=== PATIENT | female | born 1970 | race Caucasian/White ===

== ENCOUNTER 2016-06-08 09:02 | Emergency (ER) | payer MEDICAID ==
[~2016-06-08] VITALS: Ht 152.4 cm; Wt 58.0 kg
[~2016-06-08 09:02] MED LIST: ONDA4TAB8 PO; PNV
[2016-06-08 09:05] VITALS: Ht 152.4 cm; Wt 58.0 kg
[2016-06-08] MEDS ORDERED: IBUPROFEN 600 MG TAB PO ONE (09:30)
[2016-06-08 09:53] LABS: ADD UMIC YES; URINE BILIRUBIN (Dip) NEGATIVE (NEGATIVE); URINE BLOOD (Dip) 3+ (NEGATIVE); URINE COLOR LT. YELLOW (YELLOW); URINE GLUCOSE (Dip) NEGATIVE (NEGATIVE); URINE KETONES (Dip) NEGATIVE (NEGATIVE); URINE LEUKOCYTE ESTERASE (Dip) TRACE (NEGATIVE); URINE NITRITE (Dip) NEGATIVE (NEGATIVE); URINE TOTAL PROTEIN (Dip) NEGATIVE (NEGATIVE); URINE UROBILINOGEN (Dip) 0.2 E.U./dL (0.1-1.0)
[2016-06-08 10:11] LABS: URINE RBCS 25-50 /HPF (0)
[2016-06-08 10:14] LABS: ADD SCAN DIFF NO
--- NOTE | 2016-06-08 10:18 | RADRPT ---
PROCEDURE: US Pelvis CLINICAL INDICATION: Vaginal Bleed TECHNIQUE: Multiple sonographic images of the pelvis were obtained utilizing a transabdominal and endovaginal technique. The images were reviewed on a PACS workstation. COMPARISON: None. LMP: 05/17/2016 FINDINGS: The uterus measures 8.7 x 4.3 x 5.7 cm. The endometrial echo complex measures 12 mm in thickness. A sub-centimeter Nabothian cyst is identified. The right ovary measures 2.3 x 1.3 x 1.4 cm. The left ovary measures 1.4 x 1.1 x 1.2 cm. There is no rmal vascular flow in both ovaries. There are no significant ovarian lesions. No significant pelvic free fluid is identified. IMPRESSION: Unremarkable pelvic ultrasound, as above. RPTAT: EE Physician Tamiko Date Time Electronically viewed and signed by Physician Tamiko on 06/08/2016 10:18 /
[2016-06-08 10:21] LABS: BASOPHILS % 0.5 % (0.0-2.0); EOSINOPHILS # 0.2 10^3/ul (0.0-0.5); EOSINOPHILS % 2.3 % (0.0-7.0); HEMATOCRIT 41.7 % (37.0-47.0); HEMOGLOBIN 13.4 g/dl (12.0-16.0); LYMPHOCYTES # 1.8 10^3/ul (0.8-2.9); LYMPHOCYTES % 26.8 % (15.0-51.0); MEAN CORPUSCULAR HGB CONC 32.1 g/dl (32.0-37.0); MEAN CORPUSCULAR VOLUME 96.5 fl (82.0-101.0); MEAN PLATELET VOLUME 10.3 fl (7.4-10.4); MONOCYTE # 0.4 10^3/ul (0.3-0.9); MONOCYTES % 5.8 % (0.0-11.0); NEUTROPHIL # 4.2 10^3/ul (1.6-7.5); NEUTROPHILS % 64.3 % (39.0-77.0); PLATELET COUNT 237 10^3/UL (140-415); RED BLOOD COUNT 4.32 10^6/ul (4.20-5.40); RED CELL DISTRIBUTION WIDTH 12.2 % (11.5-14.5); WHITE BLOOD COUNT 6.5 10^3/ul (4.8-10.8)
[2016-06-08] MEDS ORDERED: PROG100C5 PO (10:32)
--- NOTE | 2016-06-08 10:36 | ERD ---
ER Documentation Chief Complaint Date/Time DATE: 06/08/16 TIME: 10:34 Chief Complaint vag bleed x 25 days with pelvic pain h/o uterine fibroids HPI 45-year-old female presents to the emergency department complaining of vaginal bleeding. Patient states she has been having menometrorrhagia for the last month. Her last normal menstrual period was probably in March although she does not completely recall. She thinks she skipped a period in April and is been having heavy bleeding over the last 25 days or so. She reports suprapubic pelvic pain. She reports no fevers, chills, urinary symptoms. She reports occasionally passing clots. ROS All systems reviewed and are negative except as per history of present illness. Medications Home Meds Active Scripts Progesterone,Micronized* (Progesterone*) 100 Mg Capsule, 100 MG PO HS for 10 Days, #10 CAP Prov:DUARTE ALSTON 06/08/16 Ondansetron Hcl* (Zofran*) 4 Mg Tablet, 4 MG PO Q6H for NAUSEA AND/OR VOMITING, #10 TAB Prov:SVITLANA TRINH NP 06/17/15 Reported Medications [Pnv] No Conflict Check 06/04/10 Allergies Allergies: Coded Allergies: No Known Allergies (Verified Allergy, Mild, 06/04/10) PMhx/Soc History of Surgery: Yes (MASTOIDECTOMY) Anesthesia Reaction: No Hx Neurological Disorder: No Hx Respiratory Disorders: Yes (ASTHMA) Hx Cardiac Disorders: No Hx Psychiatric Problems: No Hx Miscellaneous Medical Probl: Yes (UTERINE FIBROIDS) Hx Alcohol Use: No Hx Substance Use: No Hx Tobacco Use: No Smoking Status: Never smoker FmHx Noncontributory for chief complaint Physical Exam Vitals Vital Signs Date Time Temp Pulse Resp B/P Pulse Ox O2 Delivery O2 Flow Rate FiO2 06/08/16 09:05 98.1 66 18 113/69 100 Physical Exam GENERAL: The patient is well developed and appropriate for usual state of health in no apparent distress HEENT: Pupils equal, round, and reactive to light. EOMI. There is no scleral icterus. NECK: C-spine is soft and supple, there is no meningismus. There is no cervical lymphadenopathy. LUNGS: Clear to auscultation bilaterally. There are no rales, wheezes or rhonchi. HEART: Regular rate and rhythm, no murmurs, clicks, rubs or gallops. ABDOMEN: Soft, non-tender, non-distended. There are bowel sounds in all four quadrants. No rebound or guarding. EXTREMITIES: There is no peripheral cyanosis or edema. No focal swelling or erythema. NEURO: The patient moves all four extremities with 5/5 strength. Cranial nerves II - XII are intact. Normal gait. Alert and oriented SKIN: There is no apparent rash or petechiae. HEME/LYMPHATIC: There is no evidence of excessive bruising or lymphedema. PSYCHIATRIC: The patient does not appear anxious or depressed. Result Diagram: 06/08/16 1007 Results 24 hrs Laboratory Tests Test 06/08/16 09:26 06/08/16 10:07 Urine Color LT. YELLOW Urine Clarity SLIGHTLY CLOUDY Urine pH 6.5 Urine Specific [place] <=1.005 Urine Ketones NEGATIVE Urine Nitrite NEGATIVE Urine Bilirubin NEGATIVE Urine Urobilinogen 0.2 E.U./dL Urine Leukocyte Esterase TRACE Urine Microscopic RBC 25-50/HPF Urine Microscopic WBC 2-5/HPF Urine Hemoglobin 3+ Urine Glucose NEGATIVE% Urine Total Protein NEGATIVE White Blood Count 6.510^3/ul Red Blood Count 4.3210^6/ul Hemoglobin 13.4g/dl Hematocrit 41.7% Mean Corpuscular Volume 96.5fl Mean Corpuscular Hemoglobin 31.0pg Mean Corpuscular Hemoglobin Concent 32.1g/dl Red Cell Distribution Width 12.2% Platelet Count 21469^3/UL Mean Platelet Volume 10.3fl Neutrophils % 64.3% Lymphocytes % 26.8% Monocytes % 5.8% Eosinophils % 2.3% Basophils % 0.5% Nucleated Red Blood Cells % 0.0/100WBC Neutrophils # 4.210^3/ul Lymphocytes # 1.810^3/ul Monocytes # 0.410^3/ul Eosinophils # 0.210^3/ul Basophils # 0.010^3/ul Nucleated Red Blood Cells # 0.010^3/ul Current Medications Medications (Trade) Dose Ordered Sig/Kanu Route PRN Reason Start Time Stop Time Status Last Admin Dose Admin Ibuprofen (Motrin) 600 mg ONCE ONCE PO 06/08/16 09:30 06/08/16 09:31 DC 06/08/16 09:35 Procedures/MDM Patient was taken to a room, seen and evaluated. Comfort measures were initiated. Diagnostic tests were ordered and reviewed. RADIOLOGY: reviewed with the radiologist REEVALUATION: Patient remained hemodynamically stable without evidence of significant hemorrhage. MEDICAL DECISION MAKIN-year-old female presents to the emergency department with what appears to be perimenopausal bleeding. At this time, patient is not , her hemoglobin is normal and she does not require transfusion. Her ultrasound demonstrates no significant structural abnormalities. She has been referred back to a pre algebra teacher in the community and I will be using hormones to hopefully help the bleeding. Departure Diagnosis: Primary Impression: Excessive vaginal bleeding Patient Instructions: Understanding Menopause, Menorrhagia Additional Instructions: See your doctor for follow-up as discussed. Take a copy of your test results, if appropriate, to this follow-up visit. See your doctor or return here if your symptoms do not improve as expected. At any time, please return to the emergency department for any change or worsening in her symptoms. DUARTE ALSTON Jun 08, 2016 10:35
[2016-06-08 10:40] LABS: CALCIUM 9.1 mg/dl (8.4-10.2); CREATININE 0.66 mg/dl (0.44-1.00); POTASSIUM 3.8 mmol/L (3.5-5.1)
== END 2016-06-08 10:49 | disposition home or self-care (01) ==
LOC: FTE 09:02
DX: N93.9 Abnormal uterine and vaginal bleeding, unspecified (principal); J45.909 Unspecified asthma, uncomplicated; R10.2 Pelvic and perineal pain
CPT/HCPCS: 76830; 76856; 80048; 81001; 81003; 85025; 86850; 86900; 86901; Z7502

== ENCOUNTER 2017-04-10 08:22 | Emergency (ER) | END 2017-04-10 11:03 | disposition home or self-care (01) ==